=== PATIENT | female | born 2000 | race Caucasian/White ===

== ENCOUNTER 2022-06-04 09:23 | Outpatient (RCR) | payer OTHER, SELFPAY ==
--- NOTE | 2022-06-04 09:05 | BH.SGPN.GN ---
Behaviors/Verbalizations/Mental Status: [] Eye contact is good. Motor activity is appropriate. Appearance is casual. Speech is Appropriate. Mood is depressed. Affect is flat. Thoughts are linear and logical. No evidence of psychosis. Reviewed daily check in sheet and no reports of suicidal ideations or intent. Client Response/Progress/Benefit: [] Pt participated at times during group discussion. Attentive. Today was pt's first day in IOP. She briefly introduced herself to the group. Pt reports goals as mental stablilty. She is hoping to gain skills to lessen her depression. She was recently discharged from a psychiatric unit. Peers welcomed her to the group and shared advice/feedback for her first day and week in the program which was beneficial. Will continue in [facility] to maintain safety, prevent decompensation and readmission, and to increase healthy coping skills. Narrative Note: []
--- NOTE | 2022-06-04 10:15 | BH.SGPN.GN ---
Behaviors/Verbalizations/Mental Status: [] Eye contact is good. Motor activity is appropriate. Appearance is casual. Speech is Appropriate. Mood is euthymic. Affect is full. Thoughts are linear and logical. No evidence of psychosis. Client Response/Progress/Benefit: [] Pt was an active participant in group discussions. Attentive during psychoeducation. Participated in experiential activity. Pt participated in interactive discussion on the consequences of unhealthy expression of emotions. Pt along with peers identified several consequences which included; judgement from others, can push people away, people will keep information from us for fear we cannot handle it, we are perceived as angry or crazy, impacts our ability to effectively communicate. Pt also participated in interactive discussion on common potholes to effectively communicating which included; not focusing on topic at hand, too many issues/concerns at once, assumptions, jumping to conclusions, sarcasm, listening only to respond, and mental health struggles. Pt was able to relate and make connections between the experiential activity and the overall topic. Benefited from increased awareness of how stress and emotions can impact one's ability to communicate. Will continue in IOP to prevent decompensation, maintain safety, and increase healthy coping skills. Narrative Note: []
--- NOTE | 2022-06-04 11:10 | BH.SGPN.GN ---
Behaviors/Verbalizations/Mental Status: []Pt alert and oriented, casually dressed and groomed. Eye contact good. Motor activity appropriate. Speech within normal limits. Affect congruent, mood calm. Thoughts linear, logical, no signs of hallucinations or delusions. Client Response/Progress/Benefit: []Pt engaged in session AEB client listening attentively to peers and providing input. Attentive during psychoeducation on 4 zones of regulation. Pt able to identify feelings and behaviors for each zone. Pt identified coping skills one can use to support self in each zone. Pt stated belief that pt is in the blue and green zones today as pt feels tired and wants to isolate, but pt is also open-minded. Pt reports sleeping and coloring will help pt maintain mood today. Benefited from increased education on zones of regulation or stages of alertness for emotions and healthy coping skills to use for each zone. Pt's first day of IOP tx. Pt will continue IOP tx to prevent decompensation, gain healthy coping skills, and improve daily functioning. Narrative Note: []
--- NOTE | 2022-06-05 09:00 | BH.SGPN.GN ---
Behaviors/Verbalizations/Mental Status: [] Eye contact is good. Motor activity is appropriate. Appearance is casual. Speech is Appropriate. Mood is depressed. Affect is flat. Thoughts are linear and logical. No evidence of psychosis. Reviewed daily check in sheet and no reports of suicidal ideations or intent. Client Response/Progress/Benefit: [] Pt participated at times during the group discussions. Attentive at times however more distracted than baseline. Daily symptom tracker notes no significant distress. When asked if she would like to share she stated nothing new since yesterday. Very brief check-in with superficial information. Benefited from group support and encouragement. Will continue in IOP to maintain safety, prevent decompensation, ans increase health coping skills. Narrative Note: [] Behaviors/Verbalizations/Mental Status: [] Eye contact is good. Motor activity is appropriate. Appearance is casual. Speech is Appropriate. Mood is depressed. Affect is flat. Thoughts are linear and logical. No evidence of psychosis. Reviewed daily check in sheet and no reports of suicidal ideations or intent. Client Response/Progress/Benefit: [] Pt participated at times during the group discussions. Attentive at times however more distracted than baseline. Daily symptom tracker notes no significant distress. When asked if she would like to share she stated nothing new since yesterday. Very brief check-in with superficial information. Benefited from group support and encouragement. Will continue in IOP to maintain safety, prevent decompensation, ans increase health coping skills. Narrative Note: []
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
[2022-06-05 11:02] VITALS: BP 124/65; PULSE 65
--- NOTE | 2022-06-05 11:05 | BH.SGPN.GN ---
Behaviors/Verbalizations/Mental Status: [] Client alert and oriented, neatly dressed and groomed. Eye contact fair to good. Motor activity appropriate. Speech within normal limits. Affect constricted, mood anxious. Thoughts linear, logical, no signs of hallucinations or delusions. Client Response/Progress/Benefit: [] Client first week in IOP tx and still adjusting to group environment; however, responded well to session AEB taking notes and was attentive throughout. Group discussed the different categories of coping skills which included distraction, emotional release, grounding, self-love, and thought challenging. Client created a coping skill menu identifying various skills he could try in each category. Client did not share input in group due to adjusting to group, but wrote down her menu of coping skills. Appeared to benefit from increasing repertoire of healthy coping skills. Will continue tx to further promote mood stability, improve distress tolerance skills, maintain safety, and increase overall functioning. Narrative Note: []
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
--- NOTE | 2022-06-05 12:12 | BH.DR.ITP ---
Initial Treatment Plan Patient Information Visit Information: ADMISSION DATE: EXPECTED LOS: 4-6 weeks Problems/Symptoms Problem #1:: Depression Symptom:: Sadness, irritability, fatigue, decreased concentration, recent history of suicidal ideation while intoxicated. Problem #2:: Anxiety Symptom:: Nervousness, restlessness, avoidance
--- NOTE | 2022-06-06 09:01 | BH.SGPN.GN ---
Behaviors/Verbalizations/Mental Status: []Eye contact is good. Motor activity is appropriate. Appearance is casual. Speech is Appropriate. Mood is anxious. Affect is congruent. Thoughts are linear and logical. No evidence of psychosis. Reviewed daily check in sheet and no reports of suicidal ideations or intent. Client Response/Progress/Benefit: []Client responded well to session AEB listening attentively to others and providing feedback and thoughts to group. Client reported mental health positive was going fishing for the first time in a long time. Client reported she really enjoys fishing so was glad she pushed herself to do it again. client reported additional positive as spending quality time with her family which she stated improved her mood. Client stated current stressor is having issues with her car that she needs to get fixed. Seemed to benefit from peer support and expressing thoughts. Client to continue IOP to increase healthy coping skills, challenge distorted thoughts and prevent decompensation.
--- NOTE | 2022-06-06 10:10 | BH.SGPN.GN ---
Behaviors/Verbalizations/Mental Status: [] Eye contact is good. Motor activity is appropriate. Appearance is casual. Speech is Appropriate. Mood is depressed. Affect is full. Thoughts are linear and logical. No evidence of psychosis. Client Response/Progress/Benefit: [] Pt was an active participant in group discussion. Attentive during psychoeducation and participated in group activity. Participated in interactive group discussion on internal and external barriers to mental health progress. Group identified examples of internal barriers as; negative thoughts, anxiety, cognitive distortions, and past experiences. External barriers identified were toxic people, lack of support/resources, stressful work, and housing issues. Pt adeola a picture of her current mental health reality in which she had several negative distortions, trouble communicating, and negative habits. Her desired reality involved her feeling better and having the ability to challenge her negative distortions with less all or nothing thinking and progressing in life. Benefited from increased awareness of current barriers to progress as well as current/desired realities. Plan is to continue in IOP to maintain safety, prevent decompensation/readmission, and to increase healthy coping skills. Narrative Note: []
--- NOTE | 2022-06-06 14:03 | BH.MDN ---
Multi-Disciplinary Note - Note 45-min Individual Time Started:: 11:15 Date: 06/06/22 Purpose of session/treatment goals addressed:: Purpose of session was to address client's current symptoms and stressors and identify treatment goals for IOP. Eye Contact:: Good Motor Activity:: Appropriate Appearance:: Casual Speech:: Appropriate Mood:: Euthymic Affect:: Congruent Thoughts:: Linear, Logical, No evidence of hallucinations/delusions noted Staff Interventions:: CBT techniques, rapport building, strengths perspective, treatment planning, goal setting Client Response:: Client reported she was using alcohol inappropriately which was making everything overwhelming. Client reported since inpatient psychiatric admission on May 25, 2022 she has been clean from alcohol and drugs. Client stated she did have the urge to drink this week, but was able to think about the consequences and distract herself. Client reported since discharging from inpatient hospitalization she has felt a decrease in anxious symptoms. Client stated her depression is still impacting her. Client stated she still isolates, sleeps to pass time, and has variable energy. Client reported she has a difficult time imagining or own future. Client stated she has struggled with mental health issues since she as younger which she attributed some of this to the significant bullying she had when she was in middle school and high school. Client reported she had to do home school for senior year because the bullying became too much. Client reported these traumatic experiences had impact on her confidence and self-esteem. Client stated she struggles with making and keeping friendships. Client reported while she is in IOP she would like to rebuild my mental state. Client elaborated she wants to improve her ability to function daily. Client reported learning skills to manage depression and anxiety will be very helpful for her. Client stated her goal for the weekend is to shoot hoops at least one time and color a couple of pages. Risks/Concerns:: Denies suicidal ideation, plan or intention to date. future focused. Progress Toward Goals/Plan:: Client reporting improved mood and motivation since discharge from inpatient psychiatric admission. Client stated desire to continue to rebuild her mental state while in IOP. Client reported learning healthy coping skills to manage her anxiety and depression would be helpful. Client to continue IOP to increase healthy coping skills, improve view of self and prevent decompensation. Time Stopped:: 12:00
--- NOTE | 2022-06-06 15:02 | BH.MTP ---
Master Treatment Plan - Patient Information Program Physician:: Dr. Joyner Primary Therapist:: Lin Hackett, [facility] - Psychiatric Diagnoses Psychiatric Diagnoses:: 1. Major depressive disorder, recurrent, severe without psychosis. 2. Anxiety disorder, NOS. 3. Alcohol use disorder: Sober since May 25, 2022. 4. Marijuana use disorder in full remission for 2 months Diagnosis Code(s):: F33.2 - Estimated LOS Estimated LOS (in weeks):: 6 Problem/Goal #1 - Problem/Goal #1 Stated Goal:: Client will decrease depressive symptoms, isolation, and agitation due to Major Depressive Disorder through Intensive Outpatient Program.? Description of Barriers: Client being early in recovery from marijuana and alcohol is a potential barrier to treatment. Additional potential barriers include: cognitive distortions, limited healthy support network, low self-esteem, and negative thought patterns. Functional Impact: The patient is a 22-year-old single female with a history of depression and anxiety and polysubstance abuse who was admitted to [facility] psychiatric unit from May 25 to May 30, 2022. She was admitted for suicide attempt by overdose on pills and 2 bottles of cough syrup while intoxicated with alcohol. She has been sober since her admission on May 25, 2022 from all drugs. She is not working now due to mental health symptoms and substance abuse but she wants to get a job and plans to take a drug test soon. Prior to her admission she was drinking about 5 drinks a day of alcohol 3-4 times a week which consisted of sometimes a sixpack and/or half bottle of wine but she has been sober from alcohol since May 25, 2022. She feels her symptoms are better since her admission to the hospital but she is still not functioning at baseline. Her mood she describes as less depressed than before but still somewhat depressed and irritable at times. Her concentration is decreased. She still has some anxiety and worry but no panic attacks since 5 months ago. She has had no passive thoughts of in the past week and denies any suicidal ideation, plan for suicide, homicidal ideation, hallucinations, or delusions. - Objectives Objective #1 Stated Objective: Client will learn and utilize 2-3 healthy coping strategies to manage depressive symptoms. Interventions: Therapist will utilize CBT techniques to assist client with understanding the connection between thoughts, feelings and behaviors. Education will be provided on behavioral activation. Therapist will assist client in learning internal coping strategies to manage depressive symptoms, along with helping client identify triggers. Discharge Criteria: Client will have achieved this goal when can verbalize and has practiced at least 2 healthy coping strategies that successfully manage depressive symptoms. Target Date: 07/16/22 Review Date: 07/02/22 Objective #2 Stated Objective: Pt will decrease depressive symptoms AEB pt?s score on the DSM 5 cross-cutting measure and improve pt?s daily functioning. Interventions: Through groups and individual therapy, pt will be provided with education on cognitive distortions, mistaken beliefs, and identifying and combating negative self-talk. Therapist will assist pt with getting back into the activities she once enjoyed as well as increasing healthy coping strategies. Discharge Criteria: Pt will have met this goal when pt?s score on the DSM 5 cross cutting measure for depression has been decreased and per pt?s report daily functioning has improved. Target Date: 07/16/22 Review Date: 07/02/22 Problem/Goal #2 - Problem/Goal #2 Stated Goal:: Client will reduce overall frequency, intensity, and duration of anxiety so that daily functioning is not impaired.? Description of Barriers: Client being early in recovery from marijuana and alcohol is a potential barrier to treatment. Additional potential barriers include: cognitive distortions, limited healthy support network, low self-esteem, and negative thought patterns. Functional Impact: The patient is a 22-year-old single female with a history of depression and anxiety and polysubstance abuse who was admitted to [facility] psychiatric unit from May 25 to May 30, 2022. She was admitted for suicide attempt by overdose on pills and 2 bottles of cough syrup while intoxicated with alcohol. She has been sober since her admission on May 25, 2022 from all drugs. She is not working now due to mental health symptoms and substance abuse but she wants to get a job and plans to take a drug test soon. Prior to her admission she was drinking about 5 drinks a day of alcohol 3-4 times a week which consisted of sometimes a sixpack and/or half bottle of wine but she has been sober from alcohol since May 25, 2022. She feels her symptoms are better since her admission to the hospital but she is still not functioning at baseline. Her mood she describes as less depressed than before but still somewhat depressed and irritable at times. Her concentration is decreased. She still has some anxiety and worry but no panic attacks since 5 months ago. She has had no passive thoughts of in the past week and denies any suicidal ideation, plan for suicide, homicidal ideation, hallucinations, or delusions. - Objectives Objective #1 Stated Objective: Client will learn and implement 2-3 calming skills to reduce overall anxiety and manage anxiety.?? Interventions: Therapist and group sessions will help client identify physiological warning signs of anxiety, increase awareness of thoughts that increase anxiety, and identify behaviors that reinforce anxious symptoms. Group and individual counseling will teach client calming skills to help manage anxious symptoms. Discharge Criteria: Client will have achieved this goal when can verbalize at least 2 calming skills and reports skills successfully help reduce anxious symptoms. Target Date: 07/16/22 Review Date: 07/02/22 Objective #2 Stated Objective: Pt will decrease anxious symptoms AEB pt?s score on the DSM 5 cross-cutting measure improve pt?s daily functioning. Interventions: Through groups and individual therapy, pt will be provided education about anxiety?s impact on body and common physiological reaction to anxiety. Therapist will teach pt appropriate breathing techniques and build healthy coping skills to manage daily anxieties. Discharge Criteria: Pt will have met this goal when pt?s score on the DSM 5 cross cutting measure for anxiety has been decreased and per pt?s report daily functioning has improved. Target Date: 07/16/22 Review Date: 07/02/22
--- NOTE | 2022-06-10 09:10 | BH.SGPN.GN ---
Behaviors/Verbalizations/Mental Status: [] Eye contact is good. Motor activity is appropriate. Appearance is casual. Speech is Appropriate. Mood is anxious. Affect is congruent. Thoughts are linear and logical. No evidence of psychosis. Reviewed daily check in sheet and no reports of suicidal ideations or intent. Client Response/Progress/Benefit: [] Pt was an active participant in group discussion. Attentive. Provided appropriate feedback. Emotion for today is anxious. Mental health wins over the weekend include increased social activities and times spent with family. Shared why this was beneficial to her mental health I'm building bonds with my support. She shared several stressors and the skills she has been trying to utilize daily such as thought reframing, breathing, assertive communication, and asking for help. States I'm not snapping at other anymore. Progress noted per pt report as she is learning and implementing skills. Benefited from group support, encouragement, and feedback. Will continue in IOP to maintain safety, prevent decompensation/readmission, and to increase healthy coping skills. Narrative Note: []
--- NOTE | 2022-06-10 10:10 | BH.SGPN.GN ---
Behaviors/Verbalizations/Mental Status: [] Client alert and oriented, casually dressed and groomed. Eye contact good. Motor activity appropriate. Speech within normal limits. Affect constricted, mood irritable. Thoughts linear, logical, no signs of hallucinations or delusions. Client Response/Progress/Benefit: []Client responded well to session AEB contributing to discussion, taking notes, and listening attentively to others. Group discussed the benefits of managed anger and anger as a secondary emotion. Client completed anger iceberg worksheet, reporting outward personal signs of anger as lasing out, pushing people away and isolating. Appeared to benefit from increased knowledge of the underlying emotions that impact anger and increased self-awareness of the internal and external consequences of anger. Will continue IOP tx to prevent decompensation, as well as increase the use of healthy coping skills and thought challenging to improve mood stability. Narrative Note: []
--- NOTE | 2022-06-10 11:15 | BH.SGPN.GN ---
Behaviors/Verbalizations/Mental Status: [] Client alert and oriented, neatly dressed and groomed. Eye contact good. Motor activity appropriate. Speech within normal limits. Affect constricted, mood irritable, Thoughts linear, logical, no signs of hallucinations or delusions. Client Response/Progress/Benefit: [] Client was an engaged participant throughout group and activity AEB client providing input throughout discussion. Client contributed to the continued discussion of how people express anger as well as the consequences.of anger. Group brainstormed with group healthy coping skills to help manage anger which included: mindfulness, deep breathing, exercising going outside, and practicing affirmation. Client selected taking a break and stepping away from situation as a skill to utilize when angry.. Client appeared to benefit from brainstorming with the group potential strategies to manage anger in healthy ways. Recommended continued IOP tx to increase positive self-talk, increase overall functioning, and improve emotional regulation. Narrative Note: []
--- NOTE | 2022-06-11 09:00 | BH.SGPN.GN ---
Behaviors/Verbalizations/Mental Status: []Pt alert and oriented, casually dressed and groomed. Eye contact good, motor activity appropriate, speech WNL. Affect congruent, mood agitated. Thoughts linear, logical, no signs of hallucinations or delusions. No risk reported on pt's daily symptom tracker. Client Response/Progress/Benefit: [] Pt responded well to session, attentive and providing supportive statements. Pt reports feeling agitated this morning as pt's dog last night. Pt shared despite this stressor, pt coped well by not drinking and coloring instead. Pt shared she was also able to walk away from an argument without lashing out and she got a job at [employer]. Pt reported overall she feels grateful, but she is continuing to learn how to cope with her emotions. Pt appeared to benefit from connecting with peers and identifying what could be helpful for her today. Pt will continue IOP tx to promote mood stability, maintain sobriety, and improve emotional regulation skills. Narrative Note: []
--- NOTE | 2022-06-11 10:10 | BH.SGPN.GN ---
Behaviors/Verbalizations/Mental Status: [] Eye contact is good. Motor activity is appropriate. Appearance is casual. Speech is Appropriate. Mood is agitated. Affect is constricted. Thoughts are linear and logical. No evidence of psychosis. Client Response/Progress/Benefit: [] Client responded well to session AEB sharing and listening attentively to others. Client participated in group discussion defining boundaries and why having healthy boundaries is important. Client appeared to connect to psychoeducation on types of boundaries, including physical, emotional, and intellectual. Client listened attentively and nodding throughout discussion in which group members shared personal examples of different types of boundaries. Client shared perspective on way to put boundaries down on minding your own business by leaving situation that makes you uncomfortable instead of engaging. Client appeared to benefit from increased knowledge of the types of boundaries and increased self-awareness of personal boundaries. Will continue IOP treatment to increase depression management skills, improve use of self-compassion and independent coping skills to improve daily functioning. Narrative Note: []
--- NOTE | 2022-06-11 11:18 | BH.COMM ---
Communication Note - Communication with Client Communication Note: Left group early
--- NOTE | 2022-06-13 10:10 | BH.SGPN.GN ---
Behaviors/Verbalizations/Mental Status: []Pt alert and oriented, casually dressed and grooming appears tended to. Eye contact good. Motor activity appropriate. Speech within normal limits. Affect congruent, mood euthymic. Thoughts linear, logical, no signs of hallucinations or delusions. Client Response/Progress/Benefit: []Pt engaged throughout AEB taking notes, listening attentively, and providing input throughout. Attentive during psychoeducation and discussed the importance of goal-setting with the group. Group identified potential benefits of having goals to include: they motivate, increase self-confidence, provide a sense of accomplishment, help improve relationships, and provide a sense of purpose. Group also worked together to identify barriers to goal-setting which included; all or nothing thinking, self-doubt, toxic environment, lack of motivation, and unrealistic expectations. Pt identified personal barriers to include listening to toxic people and breaking unhealthy habits. Benefited from increased awareness of benefits and barriers to goal-setting. Pt will continue in IOP to improve mood stability, maintain sobriety, and increase use of healthy coping skills. Narrative Note: []
--- NOTE | 2022-06-13 13:00 | BH.COMM ---
Communication Note - Communication with Client Communication Note: Left after 2nd group.
--- NOTE | 2022-06-13 16:01 | BH.MDN_ITS ---
Multi-Disciplinary Note - Note 45-min Individual Time Started:: 09:20 Date: 06/13/22 Purpose of session/treatment goals addressed:: Purpose of session was to address goals 1 and 2 from MTP and gather additional background information. Eye Contact:: Good Motor Activity:: Restless Appearance:: Casual Speech:: Appropriate Mood:: Euthymic Affect:: Congruent Thoughts:: Linear, Logical, No evidence of hallucinations/delusions noted Staff Interventions:: psychoeducation on: - behavior activation and cognitive triangle, CBT techniques, rapport building, strengths perspective, taught coping skills - breathing skills - provided handout Client Response:: Client reported she accomplished goal from last session of shooting hoops. Client stated this helped clear my head because her family dog this weekend. Client reported she was able to cope with the loss in a healthy way by letting herself feel the emotions instead of pushing the emotions down. Client reported she colored a lot which helped her stay calm. Client stated feeling proud of self for not drinking alcohol even though she had been around alcohol because her dad was drinking. Client reported she's feeling excited that she was able to get a job and starts next week. 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 Client stated she thinks she will be able to handle working in the night and coming to [facility] in the morning. Client reported she has been more productive around the last in the last few days. Client shared about her history of what led up to her seeking [facility] care. Client stated she had binge of using lots of drugs and drinking. Client reported end of February 2022 she had accidental overdose when she did 15 lines of cocaine, some acid and marijuana. Client reported her friends were able to help her get sick and didn't have to get hospitalized. Client reported she started to run out of money because of spending money on drugs. 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 Client reported she wasn't able to maintain her day job. Client reported she knows the strip club scene isn't helpful because it's hard to not use drugs when there. Client stated she stopped working there once she was hospitalized. Client reported she wants to maintain sobriety for a little but is unsure she wants to give up smoking or drinking forever. Client connected with psychoeducation about the cognitive triangle and behavior activation. Client stated she needs to get back into coloring and continuing to shoot hoops. Risks/Concerns:: Client denies suicidal ideation, plan or intention to date. future focused. Progress Toward Goals/Plan:: Progress noted with client reporting improved mood, increased daily productivity, able to secure a new job, and maintaining sobriety. Client connected with psychoeducation about behavior activation and breathing techniques. Potential barrier to treatment is client stating being on the fence about maintaining sobriety. Client to continue IOP to increase healthy coping, improve confidence, and prevent decompensation. Time Stopped:: 10:00
--- NOTE | 2022-06-17 09:05 | BH.SGPN.GN ---
Behaviors/Verbalizations/Mental Status: [] Eye contact is good. Motor activity is appropriate. Appearance is casual. Speech is Appropriate. Mood is euthymic. Affect is full. Thoughts are linear and logical. No evidence of psychosis. Reviewed daily check in sheet and no reports of suicidal ideations or intent. Client Response/Progress/Benefit: [] Pt was an active particpant in group discussion. Attentive. Provided appropriate feedback. Daily symptom tracker notes 11/28 for anger. Emotion for today is groggy. Mental health win was spending time with family over the weekend. She also shared that she worked through anxiety and fear as she went to a [facility]. She also went on a [employer] for the first time. Shared why these are mental health wins. Talked about her increased ability to manager parking stressors, anxiety, and impulsivity. I'm managing emotions pretty well. Improved functioning as she plan to start FT work this week. Progress noted per pt report. Benefited from group support, encouragement, and feedback. Will continue in IOP to prevent decompensation, increase healthy coping, and maintain safety. Narrative Note: []
--- NOTE | 2022-06-17 10:10 | BH.SGPN.GN ---
Behaviors/Verbalizations/Mental Status: []Pt alert and oriented, casually dressed and groomed. Eye contact good. Motor activity appropriate. Speech within normal limits. Affect congruent, mood euthymic. Thoughts linear, logical, no signs of hallucinations or delusions. Client Response/Progress/Benefit: []Pt connected with topic of Anxiety and participated throughout, providing input and taking notes. Attentive during psychoeducation on different anxiety disorders and participated throughout interactive discussion defining anxiety and identifying safety behaviors and physiological symptoms of anxiety. Pt?s safety behaviors included sleeping a lot, rewatching shows, over-apologizing, and canceling plans. Physiological symptoms reported by patient included: zoning out, shaking, dizziness, and tightness in her chest. Benefited from increased awareness and insight on anxiety and its impact. Pt will continue IOP tx to prevent decompensation, improve ability to manage symptoms, and improve daily functioning. Narrative Note: []
--- NOTE | 2022-06-17 11:10 | BH.SGPN.GN ---
Behaviors/Verbalizations/Mental Status: []Pt alert and oriented, casually dressed and groomed. Eye contact good. Motor activity appropriate. Speech within normal limits. Affect congruent, mood euthymic. Thoughts linear, logical, no signs of hallucinations or delusions. Client Response/Progress/Benefit: []Pt an active participant AEB providing input to discussion and sharing examples throughout. Reviewed how anxiety impacts thinking. Pt identified personal anxious thoughts such as assuming, personalizing, and telling herself she is crazy. Attentive during psychoeducation on mindfulness coping skills and their impact on mental health wellness. The group worked together to brainstorm anxiety reduction strategies. Pt reported they will color until she is finished with the project to manage anxiety. Pt seemed to benefit from increased repertoire of anxiety reduction skills. Pt will continue IOP tx to improve work-related functioning, reduce negative thinking, and improve emotional regulation skills. Narrative Note: []
--- NOTE | 2022-06-18 09:00 | BH.SGPN.GN ---
Behaviors/Verbalizations/Mental Status: [] Client alert and oriented, casually dressed and groomed. Eye contact good. Motor activity appropriate. Speech within normal limits. Affect congruent, mood euthymic, Thoughts linear, logical, no signs of hallucinations or delusions. Reviewed client?s symptom tracker, no risk for suicidal ideation, plan, or intent as of 06/18/22 Client Response/Progress/Benefit: [] Client responded well to group by attentively listening and sharing with group. Client validated other group members and shared perspective with them. Reported that her emotion of the day was sleep, but not irritated Client shared mental health win of making a point to utilize coping skill of drawing yesterday and consistently limiting social media. Client indicated how she wants to start her new job this week, but that the drug test is taking longer than usual which is causing added stress. Client seemed to benefit from feedback from group members and support. She will continue IOP tx to increase coping skills, reduced irritability, and increase overall functioning. Narrative Note: []
--- NOTE | 2022-06-18 12:00 | BH.COMM ---
Communication Note - Communication with Client Communication Note: Left the program early
--- NOTE | 2022-06-18 15:01 | BH.MDN ---
Multi-Disciplinary Note - Note 45-min Individual Time Started:: 10:10 Date: 06/18/22 Purpose of session/treatment goals addressed:: Purpose of session was to address goals 1 and 2 from MTP. Eye Contact:: Fair Motor Activity:: Appropriate Appearance:: Casual Speech:: Appropriate Mood:: Euthymic Affect:: Congruent Thoughts:: Linear, Logical, No evidence of hallucinations/delusions noted Staff Interventions:: CBT techniques, rapport building, goal setting, other - healthy relationships Client Response:: Client reported over the weekend she hung out everyday with a devaughn she recently met. Client stated she had a really good time with him and thinks he is a healthy person. Client stated he does smoke marijuana everyday and occasionally drinks. Client reported they did not drink or smoke while hanging out. In discussion about healthy relationships client stated she looks for someone that has a job and a car. Client stated she believes those important qualities because it shows independence. Client reported she also thinks it's important to date someone that is supportive and encouraging. Client agreed with therapist it's important to think about characteristics she wants in a partner. Client stated she has dated unhealthy guys in the past, ignoring red flags which then led to not being treated well. Client reported she does push people away quickly even when the other person didn't do anything wrong. Recognizes this makes it difficult to maintain relationships. Client reported she went to [place] over the weekend and used belly breathing to manage anxiety before the rides. Client stated she would like to work on decreasing her nicotine use. Client stated she would like to only inhale two times each time she uses the vape versus inhaling 5 times. Client reported decreasing nicotine will benefit her physical health and decrease dependence on a substance. Risks/Concerns:: Client denies suicidal ideation, plan or intention to date. future focused. Progress Toward Goals/Plan:: Progress noted with client reporting improved mood, decreased isolation, and decreased anxiety. Client expressing desire to quit smoking nicotine vape pen. Client to start new job this week, expressed feeling excited. Client to continue IOP to continue use of healthy coping, challenge distorted thoughts and prevent decompensation. Time Stopped:: 11:00
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
--- NOTE | 2022-06-19 10:15 | BH.SGPN.GN ---
Behaviors/Verbalizations/Mental Status: []Pt alert and oriented, casually dressed and groomed. Eye contact good. Motor activity appropriate. Speech within normal limits. Affect congruent, mood euthymic. Thoughts linear, logical, no signs of hallucinations or delusions. Client Response/Progress/Benefit: []Pt engaged during session AEB Pt contributing thoughts throughout discussion and completing worksheet. Connected with discussion on crisis and how coping with external crises by using unhealthy coping skills could result in a personal crisis. Group reflected on the importance of having awareness of personal warning signs to prevent reaching crisis point. Group identified potential warning signs for crisis and Pt completed the personal warning signs worksheet. Pt identified personal crisis warning signs to include: problems with memory, difficulty concentrating, and cancelling plans.?Pt benefited by increasing awareness of what leads to crisis and personal warning signs. Pt will continue IOP tx to further improve work-related functioning, reduce impulsive behaviors, and increase mood stability. ? Narrative Note: []
--- NOTE | 2022-06-19 10:18 | PCM.BH.PN ---
Progress Note Progress Note: History of Present Illness/Interim History: [] The patient is a 22-year-old single female with a history of depression, anxiety, alcohol and marijuana abuse who is seen in follow-up at the [facility] behavioral health IOP program. I last saw the patient 2 weeks ago and at that time she had been on an increased dose of Lexapro for 6 days only so no medication changes were made. The patient states that she feels much better on the higher dose of Lexapro and her mood is only minimally depressed now. Her anxiety remains but it is somewhat improved and she denies any panic attacks. She broke up with her boyfriend recently and feels very good about this and has the support of her mother. She has more awareness that that relationship with her boyfriend was dysfunctional in many ways. She has not used any marijuana in 4 weeks and no alcohol since May 25, 2022. She is looking forward to starting a new job at a [employer] in [place] full-time on third shift. She says the company is a very good company and the pay and benefits are really good. She denies any thoughts of self-harm, passive thoughts of , suicidal ideation, plan for suicide, homicidal ideation, hallucinations or delusions. She denies any symptoms of paul. She is engaged in the program and according to the staff is progressing very well. She feels she is learning valuable skills to help cope with her mental health issues. Current Psychiatric Medications: [] Lexapro 20 mg p.o. daily (dose increased 3 weeks ago); melatonin 10 mg p.o. nightly Mental Status Examination: [] The patient is a 22-year-old female who appears normal for stated age and is casually dressed and groomed with good hygiene. She has no psychomotor agitation or retardation. She is pleasant and cooperative during the interview. Eye contact is good and speech is normal rate and rhythm and fluent with no pressure. Mood is minimally depressed. Affect is full and normal. Thought process is goal-directed and organized. Thought content: The patient is looking forward to starting a new job [employer]. There is no current evidence of passive thoughts of , plan for suicide, summa suicidal ideation, homicidal ideation, hallucinations, delusions or symptoms of paul. Reality testing is intact. Judgment is intact. Insight is good. Impulsivity is moderate. Diagnoses: [] 1. Major depressive disorder, recurrent, severe without psychosis (resolving) 2. Anxiety disorder, NOS 3. Alcohol use disorder, sober since May 25, 2022 4. Marijuana use disorder in full remission for 2-1/2 months 5. Work, financial and primary support issues Plan: [] The patient will continue the IOP program at [facility] as the structure, support, education and group therapy appear to be benefiting her and she has improved greatly since her recent hospitalization. She felt safe during the interview and if it anytime she does not feel safe she agrees to let us know or go to the emergency room. The risks, options, possible complications and side effects of the medications were again discussed with the patient and she understands and accepts these. No medication changes were made today. The patient understands the importance of staying sober from all drug use including marijuana and alcohol. She will continue to follow-up with her outpatient providers and I will see the patient in follow-up while she is in the IOP program.
--- NOTE | 2022-06-19 11:10 | BH.SGPN.GN ---
Behaviors/Verbalizations/Mental Status: []Client alert and oriented, casually dressed and groomed. Eye contact good. Motor activity appropriate. Speech within normal limits. Affect congruent. Mood euthymic. Thoughts linear, logical, no signs of hallucinations or delusions. Client Response/Progress/Benefit: []Client responded well to session as evidenced by client listening attentively to others and providing strategies during discussion. Client identified her warning signs for crisis and gained further awareness of earliest warning signs. Client created a crisis action plan to help client better manage warning signs for crisis. Client?s action plan for problems with memory included: slowing down by using belly breath, making reminders/lists in her phone, create attainable goals, and don't overschedule. Client appeared to benefit from creating a crisis action plan and increasing self-awareness. Client to continue IOP tx to increase consistent use of healthy coping, challenge negative thinking and prevent decompensation.
== END 2022-06-23 23:59 ==
LOC: BHIOP 09:23
PROVIDERS: PCP Nurse Practitioner Family; Referring Provider Psychiatry & Neurology Psychiatry; Visit Provider Psychiatry & Neurology Psychiatry
DX: F33.2 Major depressive disorder, recurrent severe without psychotic features (principal); F41.9 Anxiety disorder, unspecified; F12.90 Cannabis use, unspecified, uncomplicated; Z72.89 Other problems related to lifestyle
CPT/HCPCS: 90792; 99213; H2012; H2020; S9480; T1002; 90834

== ENCOUNTER 2022-06-22 01:06 | Emergency (ER) | payer MEDICAID, SELFPAY ==
[2022-06-22 01:07] VITALS: BP 142/86; PULSE 106; RESP 16; TEMP 37; O2SAT 99; BMI 21.5
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
[2022-06-22 05:38] VITALS: RESP 16
== END 2022-06-22 05:41 | disposition home or self-care (01) ==
PROVIDERS: Emergency Provider Emergency Medicine; PCP Nurse Practitioner Family; Visit Provider Emergency Medicine
DX: S16.1XXA Strain of muscle, fascia and tendon at neck level, initial encounter (principal); M06.9 Rheumatoid arthritis, unspecified; F10.129 Alcohol abuse with intoxication, unspecified; F33.2 Major depressive disorder, recurrent severe without psychotic features; S00.33XA Contusion of nose, initial encounter; R04.0 Epistaxis; V47.5XXA Car driver injured in collision with fixed or stationary object in traffic accident, initial encounter; Y92.410 Unspecified street and highway as the place of occurrence of the external cause; F17.210 Nicotine dependence, cigarettes, uncomplicated; F41.9 Anxiety disorder, unspecified; Z79.1 Long term (current) use of non-steroidal anti-inflammatories (NSAID); Z79.899 Other long term (current) drug therapy
CPT/HCPCS: 70450; 70486; 72125; 99284

== ENCOUNTER 2022-06-24 07:38 | Outpatient (RCR) | payer OTHER, SELFPAY ==
[2022-06-24 00:40] VITALS: BP 124/65; PULSE 65
--- NOTE | 2022-06-24 11:20 | BH.COMM ---
Communication Note - Communication with Client Communication Note: No call/ No show
--- NOTE | 2022-06-25 11:21 | BH.COMM ---
Communication Note - Communication with Client Communication Note: Left IOP at 10am, did not participate in 2nd or 3rd group
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
--- NOTE | 2022-06-27 10:10 | BH.SGPN.GN ---
Behaviors/Verbalizations/Mental Status: [] Eye contact is good. Motor activity is appropriate. Appearance is casual. Speech is Appropriate. Mood is depressed/irritable. Affect is congruent. Thoughts are linear and logical. No evidence of psychosis. Client Response/Progress/Benefit: [] Pt was an active participant in group discussions and activity. Attentive during psychoeducation. Pt along with peers were able to identify several negatives on the picture given to the group. Pt and peers also identified positives in the picture, however overall found less positives than negatives. Interactive discussion on the definition of perspective, how perspective is formed, and why perspective is important. Pt along with peers also identified that perspective can be impacted by; emotions, past experiences, mental health illness, upbringing, physical health, and age. Increased awareness on the connections between perspective and mental health. Will continue in IOP to maintain safety, prevent decompensation, increase healthy coping,and stablize mood. Narrative Note: []
--- NOTE | 2022-06-27 11:10 | BH.SGPN.GN ---
Behaviors/Verbalizations/Mental Status: []Pt alert and oriented, casually dressed and groomed. Eye contact good. Motor activity appropriate. Speech within normal limits. Affect congruent, mood irritable and fatigue. Thoughts linear, logical, no signs of hallucinations or delusions. Client Response/Progress/Benefit: []Pt was attentive and contributed in small and larger group discussion. Pt completed strengths exploration worksheet and identified personal strengths to include: honesty, logic, artistic ability, flexibility, discipline, and humor. Pt shared that working to recognize these personal strengths more consistently will help improve pt?s mood and increase self-worth. Shared wanting to focus on fostering personal strengths by scheduling time to use her artistic abilities each day. Benefited from identifying personal strengths and strategies for enhancing use of identified strengths. Pt to continue IOP tx to improve distress tolerance skills, reduce negative thinking, and improve mood stability. Narrative Note: []
--- NOTE | 2022-07-01 09:37 | BH.COMM ---
Communication Note - Communication with Client Communication Note: Client's mom, Thu, contacted this data analyst report writer to inform what has happened over the weekend. Thu reported she doesn't believe client is being completely honest with IOP staff. Thu reported over the weekend she went to a friend's house and drank alcohol. Thu stated she had to go find client and found her at a drug dealer's house. Thu reported client appeared belligerently drunk when she was picked up from the house. Thu stated client was extremely disrespectful, calling Thu many names and cussing at her. Thu reported this is not client's normal behavior so she knew client was drunk. Thu reported she took client to client's dad's house because Thu was worried she'd have to call the police if took client home with her. Thu stated client ran away two times from her dad's house. Thu reported client reports being blacked out and doesn't remember much from the night. Thu reported she can't keep doing this every weekend. Thu stated client does well during the week but can't seem to make positive choices during the weekend.
--- NOTE | 2022-07-01 10:10 | BH.SGPN.GN ---
Behaviors/Verbalizations/Mental Status: [ ] Client alert and oriented, neatly dressed and groomed. Eye contact good. Motor activity appropriate. Speech normal. Affect constricted, mood irritable and euthymic, Thoughts linear, logical, no signs of hallucinations or delusions. Client Response/Progress/Benefit: [] Client was engaged participant AEB client listening attentively to others and providing input in group. Attentive during psychoeducation on communication styles. Assisted group with identifying barriers of effective communication which included: ?being put down, cognitive distortions, and mood. Client identified they most often use assertive communication and has found that when she stays calm, the other person tends to feed off of her energy as well, make the conversation go smoothly. Benefited from increased awareness of different communication barriers, styles, and the importance of communicating effectively to improve mental wellness. Will continue IOP tx to increase use of coping skills, increase positive communication, and improve daily functioning. Narrative Note: []
--- NOTE | 2022-07-01 11:10 | BH.SGPN.GN ---
Behaviors/Verbalizations/Mental Status: [] Client alert and oriented, casually dressed and groomed. Eye contact good. Motor activity appropriate. Speech within normal limits. Affect congruent, mood euthymic. thoughts linear, logical, no signs of hallucinations or delusions Client Response/Progress/Benefit: [] Client responded well to session AEB client listening attentively to others and providing input during group discussion on the pay offs and costs of the different communication styles. Client recognizes negative impact on relationships when she doesn't use healthy communication style. Client did well in the activity to be assertive and ask for feedback. Recognizes if group wasn't assertive in activity, they wouldn't have been successful. Attentive during psychoeducation on interpersonal DBT skill DAR. Client set a goal to work on expressing herself without raising her voice and staying calm. Client seemed to benefit from increasing awareness of healthy strategies to improve communication. Client will continue IOP tx to improve successful communication, regulate emotions, and improve overall functioning.. Narrative Note: []
--- NOTE | 2022-07-01 14:37 | BH.MDN ---
Multi-Disciplinary Note - Note 60-min Individual Time Started:: 09:15 Date: 07/01/22 Purpose of session/treatment goals addressed:: Purpose of session was to process relapse client had from this weekend. Eye Contact:: Fair Motor Activity:: Restless Appearance:: Casual Speech:: Rambling Mood:: Anxious, Dysthymic Affect:: Constricted Thoughts:: Logical, No evidence of hallucinations/delusions noted Staff Interventions:: thought challenging, motivational interviewing, psychoeducation on: - addiction, CBT techniques, strengths perspective, goal setting Client Response:: Client reported Friday evening she hung out with her ex-boyfriend at a park shooting hoops. Client stated they went to one of their friend houses. Client reported she took two shots of alcohol while at the friends house. Client stated the alcohol must have impacted her more because she didn't have much to eat all day. Client reported she had told her mom she was just going to stay the night at the friends house and that her phone was going to . Client stated she woke up from a nap to her mom banging on the friends house demanding client to come outside. Client reported she was angry that her mom had come get her. Client stated she doesn't remember everything that happened, stating she thinks the combination of alcohol and anger led her to blackout some of the night. Client reported she apparently said extremely hurtful things to her mom on the drive to her dad's house. Client stated when she got to her dad's house she didn't want to stay because he had been drinking and she doesn't like to be around him when he is drinking. Client reported she did run to her dad's neighbors but then went back to his house, got her belongings and was picked up by a friend. Client reported she is upset with herself for drinking alcohol but didn't see the harm in it when she was just planning to stay the night at her friends house. Client stated she doesn't think it was a big deal until her mom got there to pick her up without client knowing she was coming. Client reported she does have desire to no longer drink alcohol. Client stated she wants to stop drinking to better her physical and mental health. Client reported two years ago she used to drink alcohol very heavily and had to get her gallbladder removed due to the damage from drinking. Client stated she also was told her rheumatoid arthritis is attacking her organs and drinking could make it worse. Client stated coming to IOP, going to work when scheduled, and deleting social media as actions that can help her be successful with this change. Client reported skills she wants to use more often to help her is coloring and working out. Client stated her mom wants her to go to , but client doesn't believe she needs to go at this time. Client reported she doesn't have urges to drink during the week. Client stated she needs to spend more time with her friends that don't have to drink every weekend. Client stated she will use belly breathing and try guided meditation over the week to manage her increased anxiety, especially when around her mom. Risks/Concerns:: Client reports passive thoughts of . Denies active suicidal thoughts, intention or plan to date. feels able to maintain safety. Progress Toward Goals/Plan:: Decompensation noted AEB client relapsing on alcohol use after 5 weeks of being sober and seeming to be blackout drunk. Client reports desire to maintain sobriety from alcohol. Client continues to report she does not want to be completely sober from marijuana. Despite her two relapses in the last two weeks she has been able to maintain employment and consistently attend IOP. Client struggles with using skills over the weekend when she has free time. Client reporting increased anxiety, especially when around her mom due to her mom being angry about the last two weekends. Client is to continue IOP to increase consistent use of healthy coping skills, challenge negative thinking and prevent decompensation. If client's alcohol and drug use continue to be barrier to treatment progress, this keno writer / runner will discuss client discharging from this IOP and admitting into a alcohol and drug IOP. Time Stopped:: 10:15
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
--- NOTE | 2022-07-03 10:30 | BH.COMM ---
Communication Note - Communication with Client Communication Note: Pt left after 1st group. Made aware that she is scheduled to see psychiatrist and encouraged to stay, however declined
--- NOTE | 2022-07-04 09:00 | BH.SGPN.GN ---
Behaviors/Verbalizations/Mental Status: [] Eye contact is good. Motor activity is appropriate. Appearance is casual. Speech is Appropriate. Mood is euthymic. Affect is full. Thoughts are linear and logical. No evidence of psychosis. Reviewed daily check in sheet and no reports of suicidal ideations or intent. Client Response/Progress/Benefit: [] Pt participated at times during the group discussion. Distracted at times. Giggling and off topic at times. Daily symptom tracker notes no significant distress. Emotion for today is exhausted. Mental health wins were mostly work related I've been at my job for 3 weeks. Looking forward to time off this weekend. She denied any struggles with her mental health this week. Insight that she has to monitor her mood and commitments to prevent burnout. Discussed her plans this weekend with her family. Progress noted per pt report. Benefited from group support, encouragement, and feedback. Will continue in IOP to maintain safety, prevent decompensation, and increase healthy coping skills. Narrative Note: []
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
--- NOTE | 2022-07-08 10:30 | BH.COMM ---
Communication Note - Communication with Client Communication Note: no call, no show for IOP today
--- NOTE | 2022-07-09 09:05 | BH.SGPN.GN ---
Behaviors/Verbalizations/Mental Status: [] Eye contact is poor. Motor activity is appropriate. Appearance is casual. Speech is Appropriate. Mood is euthymic. Affect is full. Thoughts are linear and logical. No evidence of psychosis. Reviewed daily check in sheet and no reports of suicidal ideations or intent. Client Response/Progress/Benefit: [] Pt participated when prompted. Appeared disinterested as she was focused on her phone for majority of the session. Daily symptom tracker notes no significant distress. Very superficial check-in with wins being car shopping and work is going great. Emotion for today is exhausted as she worked last night. States that she is using her skills to manage her emotions however cannot elaborate or give examples. Limited progress or benefit noted as she was disinterested and focusing more on phone than group discussions. Will remain in IOP to prevent decompensation and maintain safety, however its believed that she is being forced to present to IOP by her family as a consequence. Narrative Note: []
--- NOTE | 2022-07-09 10:15 | BH.SGPN.GN ---
Behaviors/Verbalizations/Mental Status: [] Client alert and oriented, casually dressed and groomed. Eye contact good. Motor activity appropriate. Speech within normal limits. Affect congruent, mood anxious. Thoughts linear, logical, no signs of hallucinations or delusions. Client Response/Progress/Benefit: [] Client responded well to session AEB sharing and listening attentively to others. Group provided examples of benefits of having social support, including: validation, increased confidence, and better mental health. Client also participated in group discussion regarding the barriers to accessing support including personal example of negative/toxic people as those who she uses for support. Client participated in experiential activity illustrating the impact communication, boundaries, and patience play in creating healthy support systems. Client appeared to benefit from increased knowledge of the benefits of social support and greater self-awareness. Will continue IOP tx to utilize healthy coping, reduce negative self-talk, and improve overall functioning. Narrative Note: []
--- NOTE | 2022-07-09 15:20 | BH.MDN ---
Multi-Disciplinary Note - Note 45-min Individual Date: 07/09/22
--- NOTE | 2022-07-10 09:00 | BH.SGPN.GN ---
Behaviors/Verbalizations/Mental Status: []Eye contact is good. Motor activity is appropriate. Appearance is casual. Speech is appropriate. Mood is irritable and agitated. Affect is congruent. Thoughts are linear and logical. No evidence of psychosis. Reviewed daily check in sheet and no reports of suicidal ideations or intent. Client Response/Progress/Benefit: []Pt did not respond well to session, appeared irritable with therapist and walked out of group after checking-in. Pt shared nothing has changed this morning and that pt has no wins and no stressors. Therapist asked how work has been going and how pt's relationship with her mother has been as pt has been reporting a lot of conflict. Pt stated it's great and began laughing. This is incongruent to what pt has expressed to IOP staff. Pt has been working third shift and it is unknown is pt was tired today, using substances, or drank an energy drink before coming in. Pt's behavior and mood was different than previous sessions this therapist has facilitated. Pt will be evaluated by psychiatry today and will continue IOP tx to prevent decompensation. Narrative Note: []
--- NOTE | 2022-07-10 14:33 | BH.COMM ---
Communication Note - Communication with Client Communication Note: Client left IOP after attending 1st group. Encouraged by staff to stay to see psychiatry because it is a requirement of being in IOP and she reported she was not going to stay. Did not provide reason for leaving early. Treatment team has met and determined IOP therapist is to meet with client and discharge her from the program. Client disregarded program requirement of meeting with psychiatry today and has left early from IOP after attending 1 group on 5 different dates.
--- NOTE | 2022-07-11 15:22 | BH.DS_ITS ---
Discharge Summary - Demographics Date of Admission:: 06/04/22 Discharge Date: 07/11/22 Presenting Problems at Admission:: The patient is a 22-year-old single female with a history of depression and anxiety and polysubstance abuse who was admitted to [facility] psychiatric unit from May 25 to May 30, 2022. She was admitted for suicide attempt by overdose on pills and 2 bottles of cough syrup while intoxicated with alcohol. She has been sober since her admission on May 25, 2022 from all drugs. She is not working now due to mental health symptoms and substance abuse but she wants to get a job and plans to take a drug test soon. Prior to her admission she was drinking about 5 drinks a day of alcohol 3-4 times a week which consisted of sometimes a sixpack and/or half bottle of wine but she has been sober from alcohol since May 25, 2022. She feels her symptoms are better since her admission to the hospital but she is still not functioning at baseline. Her mood she describes as less depressed than before but still somewhat depressed and irritable at times. Her concentration is decreased. She still has some anxiety and worry but no panic attacks since 5 months ago. She has had no passive thoughts of in the past week and denies any suicidal ideation, plan for suicide, homicidal ideation, hallucinations, or delusions. Discharge Diagnoses:: 1. Major depressive disorder, recurrent, severe without psychosis F33.2. 2. Anxiety disorder, NOS. 3. Alcohol use disorder, sober since May 25, 2022. 4. Marijuana use disorder in full remission for 2-1/2 months Reason for Discharge:: Treatment team has met and determined to discharge client from the program. Client disregarded program requirement of meeting with psychiatry today and has left early from [facility] after attending 1 group on 5 different dates. - Treatment Progress During Treatment & Response: Client showed initial progress early in treatment however had several weekends in which she drank in excess and made poor choices. Following these events client would indicate increased depressive symptoms and thoughts of suicide. 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 On 5 separate occasions she attended [facility] for one session then left early. Issues Still to be Addressed:: client could benefit from increase use of healthy coping skills, increase healthy support system, alcohol abuse treatment, and challenging distorted thought patterns. Discharge Recommendations/Instructions:: Client encouraged to follow up with already established providers through [facility]. Discharge Handout: Complete Discharge Handout with client on aftercare options and continuity of care.
== END 2022-07-11 08:01 | disposition home or self-care (01) ==
LOC: BHIOP 07:38
PROVIDERS: PCP Nurse Practitioner Family; Referring Provider Psychiatry & Neurology Psychiatry; Visit Provider Psychiatry & Neurology Psychiatry
DX: F33.2 Major depressive disorder, recurrent severe without psychotic features (principal); F41.9 Anxiety disorder, unspecified
CPT/HCPCS: H2012; H2020; S9480; 90834; 90837

== ENCOUNTER 2022-11-22 18:05 | Emergency (ER) | payer MEDICAID, SELFPAY ==
[2022-11-22 18:06] VITALS: BP 125/69; PULSE 91; RESP 18; TEMP 36.6; O2SAT 100; BMI 21.2
--- NOTE | 2022-11-22 20:59 | CT_ITS ---
INDICATION: Trauma EXAMINATION: CT CERVICAL SPINE - CT Spine Cervical W/O Contrast Injection TECHNIQUE: Helically acquired images were obtained of the cervical spine. 2D reformatted images were reviewed. A radiation dose optimization technique was used for this scan. IV Contrast dosage and agent: None. COMPARISON: None. FINDINGS: VERTEBRAE: No acute fracture. Normal alignment. Normal craniocervical junction and cervicothoracic junction. DISCS and SPINAL CANAL: Disc heights are preserved. NECK SOFT TISSUES: No prevertebral soft tissue swelling. LUNG APICES: Clear. CT/Spine Cervical without Contras IMPRESSION: No acute bony abnormality. Electronically Signed: Yan Toth MD at 21:55 EST ,
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
[2022-11-22 23:25] VITALS: BP 128/76; PULSE 84; RESP 19; O2SAT 100
== END 2022-11-22 23:26 | disposition home or self-care (01) ==
PROVIDERS: Emergency Provider Emergency Medicine; PCP Nurse Practitioner Family; Visit Provider Emergency Medicine
DX: S16.1XXA Strain of muscle, fascia and tendon at neck level, initial encounter (principal); R11.10 Vomiting, unspecified; F17.210 Nicotine dependence, cigarettes, uncomplicated; F17.290 Nicotine dependence, other tobacco product, uncomplicated; V43.62XA Car passenger injured in collision with other type car in traffic accident, initial encounter
CPT/HCPCS: 72125; 99282

== ENCOUNTER → 2023-04-11 | Outpatient (CLI) | payer MEDICAID, SELFPAY ==
[2023-04-11 16:28] LABS: HIV - WCH Non-Reactive (Nonreactive); Syphilis Antibodies Non-reactive
[2023-04-15 05:07] LABS: HEPATITIS B SURFACE AG Negative (Negative); Hep B Surface Antibodies Non Reactive (.); Hepatitis B Core Ab Total Negative (Negative)
== END | disposition home or self-care (01) ==
PROVIDERS: PCP Nurse Practitioner Family; Referring Provider Nurse Practitioner Women's Health; Visit Provider Nurse Practitioner Women's Health
DX: R10.2 Pelvic and perineal pain (principal)
CPT/HCPCS: 36415; 86703; 86704; 86705; 86706; 86707; 86780; 86803; 87086; 87340; 87350

== ENCOUNTER → 2023-05-15 | Outpatient (CLI) | payer MEDICAID, SELFPAY ==
[2023-05-15 09:56] LABS: ALB/GLOB Ratio 1.3 RATIO (0.9-2.4); AST(SGOT) 18 U/L (15-37); Alanine Aminotransfer ALT/SGPT 28 U/L (13-56); Albumin, Serum 4.6 g/dL (3.2-5.0); Alkaline Phosphatase 90 U/L (45-117); Anion Gap 7 (5-15); BUN 9 mg/dL (7-18); BUN/Creat Ratio 11.9 RATIO (10-20); Calcium,Total 9.4 mg/dL (8.5-10.1); Chloride 105 mmol/L (98-107); Creatinine, Serum 0.76 mg/dL (0.55-1.02); EST Glomerular Filtration Rate 102 mL/min (>60); Est Glom Filt Rate - Afr Amer 124 mL/min (>60); Globulin 3.6 g/dL (2.2-4.2); Glucose 100 mg/dL (74-106); Lipase 34 U/L (13-75); Potassium 3.9 mmol/L (3.5-5.1); Protein, Total 8.2 g/dL (6.4-8.2); Sodium Level 137 mmol/L (136-145)
== END | disposition home or self-care (01) ==
LOC: LABSPEC 09:29
PROVIDERS: PCP Nurse Practitioner Family; Referring Provider Nurse Practitioner Family; Visit Provider Nurse Practitioner Family
DX: R10.32 Left lower quadrant pain (principal)
CPT/HCPCS: 80053; 83690

== ENCOUNTER 2023-05-19 15:46 | Emergency (ER) | payer MEDICAID, SELFPAY ==
[2023-05-19 15:47] VITALS: BP 130/71; PULSE 71; RESP 18; TEMP 36.1; O2SAT 100; BMI 22.6
== END 2023-05-19 17:00 | disposition left against medical advice (07) ==
LOC: ED 17:03
PROVIDERS: PCP Nurse Practitioner Family
DX: R10.9 Unspecified abdominal pain (principal); R11.2 Nausea with vomiting, unspecified; Z53.21 Procedure and treatment not carried out due to patient leaving prior to being seen by health care provider

== ENCOUNTER 2024-01-21 14:43 | Emergency (ER) | payer MEDICAID, SELFPAY ==
[2024-01-21] VITALS (9 sets, daily range): BP systolic 101–124; BP diastolic 57–73; PULSE 73–89; RESP 12–21; TEMP 36.4–36.6; O2SAT 98–100; BMI 25.5
--- NOTE | 2024-01-21 15:33 | EKG12_ITS ---
Test Reason : CP Blood Pressure : / mmHG Vent. Rate : 074 BPM Atrial Rate : 074 BPM P-R Int : 136 ms QRS Dur : 076 ms QT Int : 386 ms P-R-T Axes : 050 067 013 degrees QTc Int : 428 ms Normal sinus rhythm Normal ECG Confirmed by CHRISOTPHER BUTLER, OLIVER ([id number]), film or videotape editor GUS TORRES ([id number]) on 01/26/2024 9:35:19 AM Referred By: SAMANTHA/MITA/EVAN Confirmed By:ANÍBAL WHITE MD
--- NOTE | 2024-01-21 15:39 | RAD_ITS ---
STUDY: X-RAY CHEST REASON FOR EXAM: Female, 23 years old. cp TECHNIQUE: Single AP portable view of the chest. COMPARISON: None. FINDINGS: EKG electrodes are seen. The lungs are clear and expanded. There is no demonstrated pleural abnormality. Normal size heart. Normal mediastinum and dayana. Normal visualized pulmonary arteries. Normal visualized aortic arch and descending thoracic aorta. Normal visualized thoracic spine. Normal visualized ribs, clavicles, and shoulders. There is no demonstrated abnormality of the visualized soft tissue structures of the upper abdomen. RAD/Chest 1 View (Portable) IMPRESSION: Normal x-ray examination of the chest. Electronically Signed: Guillermo Hylton MD at 15:48 EST ,
[2024-01-21] MEDS: Ondansetron 4 MG/2 ML Vial IV (15:42)
--- NOTE | 2024-01-21 15:45 | ED.RN ---
NO OLD EKG
[2024-01-21 15:46] LABS: Absolute Lymphocyte Count 3.71 X10^3/uL (0.83-4.51); Absolute Neutrophil Count 4.8 X10^3/uL (2.0-7.7); Basophil# 0.07 X10^3/uL; Basophil% 0.7 % (0-1); Eosinophil# 0.38 X10^3/uL; Eosinophils% 3.9 % (0-5); Hematocrit 42.5 % (37-47); Hemoglobin 13.6 g/dL (12.0-15.0); Lymphocyte # 3.71 X10^3/ul (0.83-4.51); Lymphocyte % 38.4 % (19-41); Mean Corpuscular Hgb 27.8 pg (27.0-32.0); Mean Corpuscular Volume 86.9 fL (81-99); Mean Platelet Vol. 10.5 fl (6.2-12.0); Monocyte% 6.2 % (0-10); NRBC Flagged by Analyzer 0 % (0-5); Neutrophil # 4.84 X10^3/uL (2.7-7.7); Neutrophil % 50.3 % (47-70); Platelet Count 322 K/mm3 (150-450); RBC Distribution Width SD 40.9 fl (35.1-43.9); Red Blood Count 4.89 M/mm3 (4.2-5.4); White Blood Count 9.7 K/mm3 (4.4-11.0)
[2024-01-21] MEDS: Pantoprazole Sodium 40 MG in 0.9% Normal Saline (100mL MB+) 100 ML 330 MG IV (16:09)
[2024-01-21] MEDS: 0.9% Normal Saline (1000mL) 1,000 ML 150 ML IV (16:09)
--- NOTE | 2024-01-21 16:10 | EX.ED.DYSGE1 ---
HPI History of Present Illness Chief Complaint: Chest Pain Informant: patient Onset/Context/Timing Onset: Today Narrative Narrative: Patient presents secondary to chest pain, shortness of breath, nausea, vomiting, dizziness with body aches that started today. She felt as if she had a fever. Symptoms started a couple hours prior to arrival. She describes the chest pain as squeezing in nature. [facility] Medical History Alcohol use disorder Anxiety disorder, unspecified Cannabis use disorder Major depressive disorder, recurrent severe without psychotic features Rheumatoid arthritis Home Medications albuterol sulfate 90 mcg/actuation aerosol inhaler 2 puff inhalation BID PRN PRN asthma 06/05/22 [History Last Taken Unknown] azathioprine 50 mg tablet (Imuran) 50 mg PO DAILY 06/05/22 [History Last Taken Unknown] cetirizine 10 mg tablet (Zyrtec) 10 mg PO DAILY 06/05/22 [History Last Taken Unknown] escitalopram oxalate 20 mg tablet (Lexapro) 20 mg PO DAILY 06/05/22 [History Last Taken Unknown] melatonin 10 mg tablet 10 mg PO QHS 06/05/22 [History Last Taken Unknown] meloxicam 15 mg tablet (Mobic) 15 mg PO DAILY 06/05/22 [History Last Taken Unknown] omeprazole 20 mg capsule,delayed release 20 mg PO DAILY 06/05/22 [History Last Taken Unknown] naproxen 500 mg tablet 500 mg PO BID #14 tabs 11/22/22 [Rx Last Taken Unknown] ondansetron 4 mg disintegrating tablet 4 mg PO Q8H PRN PRN Nausea #10 tabs 01/21/24 [Rx Last Taken Unknown] Allergy/AdvReac Type Severity Reaction Status Date / Time amoxicillin Allergy Hives Verified 01/21/24 14:46 shellfish derived Allergy Hives Verified 01/21/24 14:46 Surgical History History of cholecystectomy History of tonsillectomy Social History Smoking Status: Current every day smoker tobacco type: cigarettes and e-cigarettes ROS ROS ED Constitutional Constitutional ED: Reports chills, fever(s) and subjective Eyes Eyes: Denies change in vision or discharge from eye(s) ENT ENT ED: Denies discharge from eye(s), rhinorrhea or sore throat Cardiovascular Cardiovascular: Reports chest pain; Denies palpitations Respiratory/Chest Respiratory/Chest: Reports cough and dyspnea Gastrointestinal Gastrointestinal: Reports nausea and vomiting; Denies abdominal pain or diarrhea Genitourinary Genitourinary ED: Denies difficulty urinating or dysuria Musculoskeletal Musculoskeletal: Reports myalgias; Denies back pain or extremity pain Integumentary Denies Abrasions or rash Neurologic Neurologic: Reports weakness; Denies headache(s) Psychiatric Psychiatric: Denies anxiety or depression Allergic/Immunologic Allergic/Immunologic ED: Denies lip swelling or urticaria EXAM Physical Exam Const Vital Signs: 01/21/24 14:44 01/21/24 15:21 01/21/24 15:31 Temperature 97.8 F Temperature Source Temporal Pulse Rate 79 Respiratory Rate 18 Respiratory Effort Normal Normal Respiratory Pattern Normal Normal Blood Pressure 124/59 H Blood Pressure Mean 80 Pulse Ox 100 Oxygen Delivery Method Room Air 01/21/24 16:22 01/21/24 16:25 01/21/24 16:30 Temperature Temperature Source Pulse Rate 77 82 86 Respiratory Rate 18 19 H 15 Respiratory Effort Respiratory Pattern Blood Pressure 101/60 107/59 L Blood Pressure Mean 71 72 Pulse Ox 100 100 100 Oxygen Delivery Method 01/21/24 16:35 01/21/24 16:44 01/21/24 16:46 Temperature Temperature Source Pulse Rate 89 73 80 Respiratory Rate 16 20 H Respiratory Effort Respiratory Pattern Blood Pressure 117/73 118/57 L Blood Pressure Mean 87 75 Pulse Ox 100 99 Oxygen Delivery Method Room Air 01/21/24 16:50 Temperature Temperature Source Pulse Rate 77 Respiratory Rate 21 H Respiratory Effort Respiratory Pattern Blood Pressure 117/63 Blood Pressure Mean 79 Pulse Ox 100 Oxygen Delivery Method Room Air Positive well nourished and well developed General Appearance ED: well developed HEENT Reports moist mucous membranes Eyes EOMs intact bilaterally Chest Wall inspection of chest normal and palpation of chest normal Resp normal respiratory effort and clear to auscultation bilaterally Cardio regular rate and regular rhythm GI non-tender Palpation: soft Extremity normal to inspection Neuro oriented x3 and no sensory deficits noted Motor Exam: strength 5/5 throughout MDM MDM MDM Narrative Medical decision making narrative: Patient placed on shelter monitor. EKG obtained to evaluate for cardiac arrhythmia/ischemia. Chest x-ray obtained to evaluate for acute lung pathology, cardiac size, or mediastinal abnormality. IV line initiated. Labwork obtained to evaluate for leukocytosis, anemia, and electrolyte derangement. Swab for COVID, influenza, and RSV will be obtained. Patient given IV fluids, Zofran, and Protonix. History & Record Review Discussion w/independent historian: Patient Lab Data Attestation: I reviewed the patient's lab results. Labs: Laboratory Results - last 24 hr 01/21/24 14:33 WBC 9.7 RBC 4.89 Hgb 13.6 Hct 42.5 MCV 86.9 MCH 27.8 MCHC 32.0 RDW Std Deviation 40.9 RDW Coeff of Ric 13.0 Plt Count 322 MPV 10.5 Immature Gran % (Auto) 0.500 Neut % (Auto) 50.3 Lymph % (Auto) 38.4 Irwin % (Auto) 6.2 Eos % (Auto) 3.9 Baso % (Auto) 0.7 Absolute Neuts (auto) 4.8 Absolute Lymphs (auto) 3.71 Nucleated RBC % 0 Sodium 137 Potassium 3.7 Chloride 104 Carbon Dioxide 26.0 Anion Gap 7 BUN 11 Creatinine 0.89 Estim Creat Clear Calc 79.34 Est GFR (MDRD) Af Amer 102 Est GFR (MDRD) Non-Af 84 BUN/Creatinine Ratio 12.3 Glucose 103 Calcium 9.1 Total Bilirubin 0.30 Direct Bilirubin 0.09 AST 18 ALT 20 Alkaline Phosphatase 77 Troponin I High Sens 4 Total Protein 7.8 Albumin 3.9 Globulin 3.9 Lipase 50 Serum , Qual NEGATIVE Radiography Chest X-Ray - ED: 1 View, Read by ED Physician, Normal, Heart, Lungs and Mediastinum Diagnostic Testing: Clinical Impression(s) from Imaging Studies Chest X-Ray 01/21/24 15:39 IMPRESSION: Normal x-ray examination of the chest. Electronically Signed: Guillermo Hylton MD at 15:48 EST , EKG Initial EKG: Attestation: I personally reviewed and interpreted this EKG as follows: Interpretation: Sinus Rhythm (Sinus at 74 with no acute ischemia.) Treatment and Re-Evaluation :: CBC and chemistry studies are unremarkable. LFTs and lipase normal. Troponin is normal at 4. test negative. Portable chest x-ray per my interpretation reveals no evidence of acute abnormality. Radiology interpretation reviewed and agrees. EKG is sinus rhythm with no evidence of ischemia. On repeat evaluation patient still complains of some chest pressure. I will give her a dose of Toradol. Patient's symptoms or not consistent with pulmonary embolism. Her swab for COVID, influenza, and RSV is negative at this time. Did advise her if she continues to have symptoms and 2 to 3 days she should be retested. Given her combination of chest pain, nausea, vomiting, body aches, reported fever this is likely more viral in nature. Discharge Plan Triage Chief Complaint: Chest Pain ED Provider: Gudelia Haynes Dx/Rx/DC Orders Clinical Impression: Viral syndrome Instructions: ED Viral Syndrome (Adult) Prescriptions: New ondansetron 4 mg tablet,disintegrating 4 mg PO Q8H PRN PRN (Reason: Nausea) Qty: 10 0RF No Action cetirizine [Zyrtec] 10 mg Tablet 10 mg PO DAILY meloxicam [Mobic] 15 mg Tablet 15 mg PO DAILY azathioprine [Imuran] 50 mg Tablet 50 mg PO DAILY omeprazole 20 mg Capsule,Delayed Release(Dr/Ec) 20 mg PO DAILY albuterol sulfate 90 mcg/actuation Hfa Aerosol Inhaler 2 puff INHALATION BID PRN PRN (Reason: asthma) escitalopram oxalate [Lexapro] 20 mg Tablet 20 mg PO DAILY melatonin 10 mg Tablet 10 mg PO QHS naproxen 500 mg tablet 500 mg PO BID Qty: 14 0RF Primary Care Provider: Angie Linton NP Referrals: Angie Linton NP, [employer] [Primary Care Provider] - 3-5 Days if not improving
[2024-01-21 16:16] LABS: AST(SGOT) 18 U/L (15-37); Alanine Aminotransfer ALT/SGPT 20 U/L (13-56); Albumin, Serum 3.9 g/dL (3.2-5.0); Alkaline Phosphatase 77 U/L (45-117); Anion Gap 7 (5-15); BUN 11 mg/dL (7-18); BUN/Creat Ratio 12.3 RATIO (10-20); Bilirubin, Direct 0.09 mg/dL (0.00-0.30); Calcium,Total 9.1 mg/dL (8.5-10.1); Chloride 104 mmol/L (98-107); Creatinine, Serum 0.89 mg/dL (0.55-1.02); EST Glomerular Filtration Rate 84 mL/min (>60); Est Glom Filt Rate - Afr Amer 102 mL/min (>60); Estimated Creatinine Clearance 79.34 ml/min; Globulin 3.9 g/dL (2.2-4.2); Glucose 103 mg/dL (74-106); Lipase 50 U/L (13-75); Potassium 3.7 mmol/L (3.5-5.1); Protein, Total 7.8 g/dL (6.4-8.2); Sodium Level 137 mmol/L (136-145); Troponin-I HS 4 pg/mL (3.0-54.0)
[2024-01-21 16:43] LABS: Internal QC Validated? YES +Cl - CLEAR BKGD; Pregnancy, Serum, hCG Quali. NEGATIVE Negative
[2024-01-21] MEDS: Ketorolac 30 MG/ML Syringe IV (17:54)
--- NOTE | 2024-01-21 18:04 | ED.RN ---
1803: SPOKE WITH PASTOR GONZALEZ FROM [facility], SHE IS ESTABLISHING A RIDE FOR THE PATIENT BACK TO [facility]
== END 2024-01-21 18:07 | disposition home or self-care (01) ==
PROVIDERS: Emergency Provider Emergency Medicine; PCP Nurse Practitioner Family; Visit Provider Emergency Medicine
DX: B34.9 Viral infection, unspecified (principal); R07.9 Chest pain, unspecified; R06.02 Shortness of breath; R11.2 Nausea with vomiting, unspecified; R42 Dizziness and giddiness; F17.210 Nicotine dependence, cigarettes, uncomplicated; F17.290 Nicotine dependence, other tobacco product, uncomplicated
CPT/HCPCS: 71045; 80048; 80076; 83690; 84484; 84703; 85025; 87631; 93005; 96361; 96365; 96375; 99285; J7030; A4216; J2405

== ENCOUNTER 2024-05-19 09:27 | Emergency (ER) | payer MEDICAID, SELFPAY ==
[2024-05-19] VITALS (8 sets, daily range): BP systolic 106–127; BP diastolic 59–72; PULSE 57–96; RESP 14–19; TEMP 36.2–36.3; O2SAT 85–100; BMI 23.8
--- NOTE | 2024-05-19 09:39 | CT_ITS ---
STUDY: CT BRAIN WITHOUT CONTRAST REASON FOR EXAM: Female, 24 years old. Head injury. RADIATION DOSAGE (If Supplied By Facility): CTDIvol = ( 44.99 ) mGy, DLP = ( 801.73 ) mGycm TECHNIQUE: Transaxial CT imaging of the brain was performed without administration of intravenous contrast material. Individualized dose optimization techniques were used for this CT. COMPARISON: Comparison is made with prior study dated June 22, 2022. FINDINGS: Hematoma with laceration overlying the posterior right parietal occipital bone. Nondisplaced comminuted fracture of the right occipital lobe along its base. A small amount of free air is seen within the brain at that site. Small amount of air is also seen in the soft tissues overlying the right temporal bone. Nondisplaced fracture of the anterior aspect of the petrous bone. There is also evidence of a partial opacification of the right mastoid air cells. Hemorrhagic contusion is seen in the left frontal lobe. There is thickening of the anterior cerebral falx suggestive of a subdural hematoma of the cerebral falx. Normal white matter tracts of the cerebral hemispheres. Normal basal ganglia and thalami. Normal brainstem. Normal cerebellum. There is no intracranial hemorrhage. There are no findings of an acute ischemic infarction. Normal visualized paranasal sinuses. CT/Brain/Head without Contrast IMPRESSION: Scalp hematoma overlying the posterior right parietal occipital bones with laceration. Hemorrhagic contusion overlying the right left frontal lobe with small subdural hematoma in the anterior aspect of the cerebral falx. Nondisplaced fracture of the posterior right occipital bone inferiorly with a small amount of air in the brain. Fluid is seen in the right mastoid air cells. Findings suggestive of a basilar skull fracture. N.B. : The above Results were Read Back by Guillermo Hylton MD to Bon Ayala DO, and understanding confirmed on 05/19/2024 10:17:28 (ET). Electronically Signed: Guillermo Hylton MD at 10:20 EDT ,
--- NOTE | 2024-05-19 09:39 | CT_ITS ---
STUDY: CT CERVICAL SPINE WITHOUT CONTRAST REASON FOR EXAM: Female, 24 years old. Injury/Pain RADIATION DOSAGE (If Supplied By Facility): CTDIvol = ( 16.12 ) mGy, DLP = ( 395.66 ) mGycm TECHNIQUE: High resolution transaxial imaging was performed without contrast material. Sagittal and coronal images were reconstructed. Individualized dose optimization techniques were used for this CT. COMPARISON: None FINDINGS: Slightly limited due to patient motion artifact. Normal craniovertebral junction. Normal anterior atlantoaxial articulation. Normal odontoid process. Right basilar skull fracture involving the petrous bone and extending to the occipital bone with opacification of the right mastoid air cells. This was discussed on the CT scan of the brain. Normal cervical lordosis. Normal vertebral bodies and posterior osseous elements. C2-3: Normal endplates. Normal disc height and morphology. Normal central canal and intervertebral neuroforamina. C3-4: Normal endplates. Normal disc height and morphology. Normal central canal and intervertebral neuroforamina. C4-5: Normal endplates. Normal disc height and morphology. Normal central canal and intervertebral neuroforamina. C5-6: Normal endplates. Normal disc height and morphology. Normal central canal and intervertebral neuroforamina. C6-7: Normal endplates. Normal disc height and morphology. Normal central canal and intervertebral neuroforamina. C7-T1: Normal endplates. Normal disc height and morphology. Normal central canal and intervertebral neuroforamina. Normal visualized soft tissue structures. CT/Spine Cervical without Contras IMPRESSION: Normal unenhanced CT examination of the cervical spine. Right basilar skull fracture with involvement of the right mastoid air cells. This is discussed on the CT scan of the brain. Electronically Signed: Guillermo Hylton MD at 10:23 EDT ,
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
[2024-05-19 09:49] LABS: Absolute Lymphocyte Count 5.91 X10^3/uL (0.83-4.51); Absolute Neutrophil Count 10.2 X10^3/uL (2.0-7.7); Basophil# 0.09 X10^3/uL; Basophil% 0.5 % (0-1); Eosinophil# 0.31 X10^3/uL; Eosinophils% 1.8 % (0-5); Hematocrit 40.1 % (37-47); Lymphocyte # 5.91 X10^3/ul (0.83-4.51); Lymphocyte % 33.8 % (19-41); Mean Corp Hgb Conc 32.4 g/dL (32-36); Mean Corpuscular Volume 89.3 fL (81-99); Mean Platelet Vol. 10.2 fl (6.2-12.0); Monocyte# 0.85 X10^3/uL; Monocyte% 4.9 % (0-10); NRBC Flagged by Analyzer 0 % (0-5); Neutrophil # 10.23 X10^3/uL (2.7-7.7); Neutrophil % 58.5 % (47-70); POSITIVE DIFFERENTIAL YES; POSITIVE MORPHOLOGY YES; Platelet Count 335 K/mm3 (150-450); RBC Distribution Width CV 13.2 % (11.6-14.6); RBC Distribution Width SD 43.4 fl (35.1-43.9); Red Blood Count 4.49 M/mm3 (4.2-5.4); White Blood Count 17.5 K/mm3 (4.4-11.0)
[2024-05-19 09:58] LABS: Prothrombin Time (Protime)PT. 13.6 SECONDS (11.7-14.9)
[2024-05-19 09:59] LABS: Partial Thromboplast Time 21.4 Seconds (24.1-36.2)
[2024-05-19 09:59] LABS: Squamous Epithelial Cells - UA 0 SEEN /hpf (5-10); White Blood Cells 0 SEEN /hpf (0-5)
[2024-05-19 10:00] LABS: Differential Indicated SCAN CRITERIA MET
[2024-05-19 10:02] LABS: Internal QC Validated? YES +Cl - CLEAR BKGD; Pregnancy, Serum, hCG Quali. NEGATIVE Negative
[2024-05-19] MEDS: Ondansetron 4 MG/2 ML Vial IV (10:03)
[2024-05-19] MEDS: 0.9% Normal Saline (1000mL) 1,000 ML 1000 ML IV (10:03)
[2024-05-19 10:04] LABS: Alcohol, Blood (Medical)-Serum < 3.0 mg/dL; Anion Gap 13 (5-15); BUN 10 mg/dL (7-18); BUN/Creat Ratio 9.7 RATIO (10-20); Calcium,Total 9.5 mg/dL (8.5-10.1); Chloride 103 mmol/L (98-107); Creatinine, Serum 1.03 mg/dL (0.55-1.02); EST Glomerular Filtration Rate 71 mL/min (>60); Est Glom Filt Rate - Afr Amer 86 mL/min (>60); Estimated Creatinine Clearance 73.98 ml/min; Glucose 229 mg/dL (74-106); Potassium 2.8 mmol/L (3.5-5.1); Sodium Level 136 mmol/L (136-145)
[2024-05-19] MEDS: Midazolam 2 MG/2 ML Syringe IM ×2 (10:13→10:44)
[2024-05-19 10:22] LABS: Atypical Lymphocyte 1+ %; Reactive Lymphocyte 1+
[2024-05-19 10:40] LABS: Color, Urine Yellow (Yellow); Glucose, Dipstick Normal (Normal); Leukocyte Esterase-Dipstick Negative /ul (Negative); Nitrite-Dipstick Negative (Negative); Occult Blood-Urine 10 /ul (Negative); Protein-Dipstick 100 mg/dl (Negative); Specific Gravity, Urine 1.025 (1.002-1.030); Urine Bilirubin Dipstick Negative (Negative); Urine Clarity Sl. Cloudy (Clear); Urine Urobilinogen Normal (Normal)
[2024-05-19 10:42] LABS: Ketone-Dipstick 150 mg/dl (Negative)
[2024-05-19 10:47] LABS: Bacteria 2+ /hpf (None Seen); Mucous, Urine 1+ /hpf (<or=2+); Red Blood Cells-Urine 0-5 SEEN /hpf (0-5)
[2024-05-19 11:05] LABS: Amphetamine Urine VISTA NEGATIVE (<1000 ng/mL); Barbiturate Urine VISTA NEGATIVE (< 200 ng/mL); Benzodiazepine Urine VISTA NEGATIVE (< 200 ng/mL); Cocaine Urine VISTA NEGATIVE (< 300 ng/mL); Ecstacy Urine VISTA NEGATIVE (< 500 ng/mL); Methadone Urine VISTA NEGATIVE (< 300 ng/mL); PCP Urine VISTA NEGATIVE (< 25 ng/mL); THC Urine VISTA POSITIVE (< 50 ng/mL); Vista UDS pH Range 5
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
== END 2024-05-19 11:46 | disposition short-term general hospital (02) ==
PROVIDERS: Emergency Provider Emergency Medicine; PCP Nurse Practitioner Family; Visit Provider Emergency Medicine
DX: S02.101A Fracture of base of skull, right side, initial encounter for closed fracture (principal); F33.2 Major depressive disorder, recurrent severe without psychotic features; X83.8XXA Intentional self-harm by other specified means, initial encounter; S06.5X9A Traumatic subdural hemorrhage with loss of consciousness of unspecified duration, initial encounter; F17.210 Nicotine dependence, cigarettes, uncomplicated; F17.290 Nicotine dependence, other tobacco product, uncomplicated; Z79.899 Other long term (current) drug therapy; Z78.1 Physical restraint status
CPT/HCPCS: 70450; 72125; 80048; 80307; 80320; 81001; 84703; 85025; 85610; 85730; 96361; 96372; 96374; 99285; J7030; A4216; G0480; J2405

== ENCOUNTER 2024-09-21 14:30 | Outpatient (RCR) | payer MEDICAID, SELFPAY ==
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
--- NOTE | 2024-10-19 16:34 | HP.SP.DC_ITS ---
ST Discharge Summary Discharged: Discharge: Abbey Dodge is discharged from speech therapy at [facility] as of 09/21/24. She was referred following her TBI and was evaluated on 06/18/24 with therapy recommended weekly. She attended 10 sessions with sessions shorted at times at patient request due to work schedule and missed one session due to no show and cancelled 2-3 sessions also. The focus of treatment was on complex planning, organization, and higher level though processes along with recall skills. She can use recall strategies such as a calendar and making lists to recall items needed. At the time of discharge, she stated that she recalls tasks but has a difficult time in completing them. She can verbally explain steps needed to complete complex tasks and can prioritizing tasks as well. Her goals have been met. Patient agrees with discharge at this time. Thank you for allowing me to participate in the care of this patient.
== END 2024-09-21 19:00 | disposition home or self-care (01) ==
LOC: SP 14:30
PROVIDERS: PCP Nurse Practitioner Family
DX: S06.5XAD Traumatic subdural hemorrhage with loss of consciousness status unknown, subsequent encounter (principal); G93.89 Other specified disorders of brain
CPT/HCPCS: 92507; 92523

== ENCOUNTER → 2025-01-18 | Outpatient (CLI) | payer MEDICAID, SELFPAY ==
--- NOTE | 2025-01-18 15:23 | MRI_ITS ---
PROCEDURE: Noncontrast MRI of the left ankle. REASON FOR EXAM: Peroneal tendinitis. ATFL sprain. TECHNIQUE: Multiplanar, multisequence MRI images of the left ankle were obtained without IV contrast. COMPARISON: None. FINDINGS The distal Achilles tendon and proximal plantar fascia are intact. Fat signal is maintained in the sinus tarsi. Included distal tibia and fibula are intact. No osteochondral lesion of the talar dome. No sizable tibiotalar joint effusion. No acute fracture or dislocation of the left ankle. The tarsal bones and included metatarsals are intact. No soft tissue mass or drainable fluid collection of the left ankle. The anterior and posterior distal tibial-fibular syndesmotic ligaments and the anterior talofibular ligament appear intact. The calcaneofibular and major components of the deltoid ligament are intact. There is some minimal increased signal and thickening of the distal peroneus longus tendon, suggesting a mild degree of tendinopathy. The remaining major flexor and extensor tendons appear intact. MRI/Lower Ext Joint Only (Routine) IMPRESSION: Findings suggestive of mild tendinopathy of the distal peroneus longus tendon. The remaining major flexor and extensor tendons are intact. No acute bony abnormality of the left ankle. The major ligamentous structures of the left ankle appear intact. Reading Location: [facility]
== END | disposition home or self-care (01) ==
LOC: MRI 15:19
PROVIDERS: PCP Nurse Practitioner Family; Referring Provider Podiatrist Foot & Ankle Surgery; Visit Provider Podiatrist Foot & Ankle Surgery
DX: M76.22 Iliac crest spur, left hip (principal); S93.492A Sprain of other ligament of left ankle, initial encounter; X58.XXXA Exposure to other specified factors, initial encounter
CPT/HCPCS: 73721